=== PATIENT | female | born 1990 | race African-American/Black ===

== ENCOUNTER 2016-08-13 11:04 | Emergency (ER) | payer OTHER ==
[~2016-08-13] VITALS: Ht 152.4 cm; Wt 50.4 kg
[~2016-08-13 11:04] MED LIST: ALBU8I INH; ALBUAER3 INH; AZIT250T3 PO; PRED20 PO
[2016-08-13 11:06] VITALS: BP 133/81; PULSE 81; RESP 16; TEMP 97.8; O2SAT 92
[2016-08-13] MEDS ORDERED: ALBUAER3 INH (12:31)
[2016-08-13] MEDS ORDERED: PRED20 PO (12:31)
--- NOTE | 2016-08-13 12:32 | PD ---
HPI Chief Complaint: Respiratory Symptoms Time Seen by Provider: 12:24 Travel History International Travel<30 days: No Contact w/Intl Traveler<30days: No Traveled to known affect area: No History of Present Illness HPI This is a 25-year-old female who has a history of asthma who presents to the emergency department with 2 days of shortness of breath and wheezing. She denies any rhinorrhea, fevers or chills. Her symptoms of been constant, moderate severity and worse with exertion. She ran out of her inhaler. PFSH Past Medical History Asthma: Yes Developmental Delay: No Diminished Hearing: No Respiratory: Yes (Asthma) Immunizations Current: Yes ?: Not Social History Alcohol Use: No Tobacco Use: No Substance Use: No Allergies-Medications (Allergen,Severity, Reaction): Coded Allergies: No Known Allergies (Verified , 08/13/16) Reported Meds & Prescriptions Reported Meds & Active Scripts Active Prednisone 20 Mg Tab 40 Mg PO DAILY 5 Days Proair Hfa 8.5 GM Inh (Albuterol Sulfate) 90 Mcg/Act Aer 2 Puff INH Q4-6H PRN 108 mcg/actuation Azithromycin 250 Mg Tab 250 Mg PO DIRECTED Take 2 tabs (500 mg) on day 1 then 1 tab daily x 4 days. Review of Systems Except as stated in HPI: all other systems reviewed are Neg Physical Exam Narrative GENERAL:Well appearing, no acute distress SKIN: Focused skin assessment warm and dry. HEAD: Atraumatic. Normocephalic. EYES: Pupils equal and round. No injection or drainage. ENT: Moist mucous membranes NECK: Trachea midline. CARDIOVASCULAR: Regular rate and rhythm. No murmur appreciated. RESPIRATORY: Diffuse bilateral expiratory wheezing. GASTROINTESTINAL: Abdomen soft, non-tender, nondistended. MUSCULOSKELETAL: No obvious deformities. NEUROLOGICAL: Awake and alert. No obvious cranial nerve deficits. Moving all extremities. PSYCHIATRIC: Appropriate mood and affect; insight and judgment normal. Data Data Last Documented VS Vital Signs Date Time Temp Pulse Resp B/P Pulse Ox O2 Delivery O2 Flow Rate FiO2 08/13/16 11:06 97.8 81 16 133/81 92 MDM Medical Decision Making Medical Screen Exam Complete: Yes Emergency Medical Condition: Yes Differential Diagnosis Acute asthma exacerbation, bronchitis, pneumonia Narrative Course This is a 25-year-old female who presents the emergency department with wheezing in the setting of a history of asthma. She is well-appearing on examination think she is appropriate for outpatient therapy. She'll be prescribed prednisone and albuterol. Diagnosis Primary Impression: Asthma exacerbation Patient Instructions: General Instructions Additional Instructions: If you develop severe shortness of breath, chest pain, or difficulty breathing return to the emergency department. Use albuterol every 4 hours for the next 2 days. Then use as needed for wheezing. Complete your course of steroids. Follow up with your primary care physician in 2-3 days if your symptoms have not improved. Med/Other Pt SpecificInfo: Prescription(s) given Scripts Prednisone 20 Mg Tab40 Mg PO DAILY 4 Days Prov:Lynn Michelle MD 08/13/16 Albuterol 8.5 GM Inh (Proair Hfa 8.5 GM Inh)90 Mcg/Act Aer2 Puff INH Q4-6H PRN ( SHORTNESS OF BREATH) #1 INHALER 108 mcg/actuation Prov:Lynn Michelle MD 08/13/16 Disposition: 01 DISCHARGE HOME Condition: Stable Lynn Michelle MD Aug 13, 2016 12:31
[2016-08-13 13:05] VITALS: BP 118/75
== END 2016-08-13 13:13 | disposition home or self-care (01) ==
LOC: NEPD 11:04
DX: J45.901 Unspecified asthma with (acute) exacerbation (principal)
CPT/HCPCS: 99284

== ENCOUNTER 2017-07-02 06:48 | Emergency (ER) | payer OTHER ==
[~2017-07-02] VITALS: Ht 152.4 cm; Wt 50.0 kg
[~2017-07-02 06:48] MED LIST changes: -ALBU8I INH
[2017-07-02 07:05] VITALS: BP 117/75; PULSE 105; RESP 16; TEMP 98.6; O2SAT 96
[2017-07-02] MEDS ORDERED: RESP: ALBUTEROL 2.5 MG/IPRATROPIUM 0.5 MG NEB (SCH) INH ONE (07:30)
[2017-07-02] MEDS ORDERED: predniSONE 20 MG TAB PO ONE (07:30)
[2017-07-02 07:38] VITALS: BP 106/72; PULSE 96; RESP 16; O2SAT 96
--- NOTE | 2017-07-02 07:50 | PD ---
HPI Chief Complaint: Respiratory Symptoms Time Seen by Provider: 07:18 Travel History International Travel<30 days: No Contact w/Intl Traveler<30days: No Traveled to known affect area: No History of Present Illness HPI 26-year-old female, with history of asthma, presents to the emergency department with complaint of asthma exacerbation for the past couple days. She has been out of her inhaler for about 2 weeks. She is reporting shortness of breath, chest tightness, wheezing. Denies chest pain. Denies recent illness including nasal congestion, cough, sore throat, ear pain. Denies tobacco use. No known aggravating factors. Relieved with albuterol inhaler, but does not have one. Has tried using Vicks vapor rub for symptom management with no relief. Symptoms are mild to moderate in severity. No primary care provider. No known allergies. History of asthma. Has no other medical complaints. No other modifying factors or associated signs and symptoms. PFSH Past Medical History Asthma: Yes Developmental Delay: No Diminished Hearing: No Respiratory: Yes (Asthma) Immunizations Current: Yes ?: Not LMP: 06/17/17 Past Surgical History Surgical History: No Previous Surgery Social History Alcohol Use: No Tobacco Use: No Substance Use: No Allergies-Medications (Allergen,Severity, Reaction): Coded Allergies: No Known Allergies (Verified Adverse Reaction, Unknown, 07/02/17) Reported Meds & Prescriptions Reported Meds & Active Scripts Active Deltasone (Prednisone) 20 Mg Tab 40 Mg PO DAILY 4 Days start 07/03/2017 Ventolin Hfa 18 GM Inh (Albuterol Sulfate) 90 Mcg/Act Aer 2 Puff INH Q4-6H PRN Proair Hfa 8.5 GM Inh (Albuterol Sulfate) 90 Mcg/Act Aer 2 Puff INH Q4-6H PRN 108 mcg/actuation Review of Systems Except as stated in HPI: all other systems reviewed are Neg Physical Exam Narrative GENERAL: Well-nourished, well-developed black female patient, in no acute distress; afebrile, nontoxic-appearing SKIN: Warm and dry. HEAD: Atraumatic. Normocephalic. EYES: Pupils equal and round. No scleral icterus. No injection or drainage. ENT: Mucosa pink and moist. Airway patent. EARS: Bilateral pinnae and external canals appear within normal limits. NECK: Trachea midline. No lymphadenopathy. CARDIOVASCULAR: Mildly tachycardic rate in the low 100s and regular rhythm. No murmur appreciated. RESPIRATORY: No accessory muscle use. Lungs with Wheezing throughout to auscultation. Breath sounds equal bilaterally. No retractions or tachypnea. No Audible wheezing noted. GASTROINTESTINAL: Abdomen soft, non-tender, nondistended. Hepatic and splenic margins not palpable. Bowel sounds are active 4 quadrants. MUSCULOSKELETAL: No obvious deformities. No clubbing. No cyanosis. No edema. NEUROLOGICAL: Awake and alert. Oriented 3. No obvious cranial nerve deficits. Motor grossly within normal limits. Normal speech. Moves all extremities. 5/5 strength to all extremities. PSYCHIATRIC: Appropriate mood and affect; insight and judgment normal. Data Data Last Documented VS Vital Signs Date Time Temp Pulse Resp B/P (MAP) Pulse Ox O2 Delivery O2 Flow Rate FiO2 07/02/17 08:37 95 17 96 07/02/17 07:38 Room Air 07/02/17 07:05 98.6 Orders Orders Prednisone (Deltasone) (07/02/17 07:30) Albuterol-Ipratropium Neb (Duoneb Neb) (07/02/17 07:30) [facility] Medical Decision Making Medical Screen Exam Complete: Yes Emergency Medical Condition: Yes Medical Record Reviewed: Yes Differential Diagnosis Asthma exacerbation, bronchitis, medication refill Narrative Course 26-year-old female with history of asthma presents with asthma exacerbation. Patient is in no acute distress. Oxygen saturation is 96% on room air. No tachypnea or retractions. Lungs with wheezing throughout on auscultation. No audible wheezing. Patient ran out of her albuterol inhaler 2 weeks ago and needs a refill. Deltasone, DuoNeb 1 ordered. Reexamination patient reports improvement in symptoms. Denies chest tightness or shortness of breath. Lungs are clear and equal throughout. Ventolin inhaler , prednisone prescribed for home. Instructed patient to follow up with primary care provider. Patient verbalizes understanding and agreement with treatment plan. Patient is medically cleared and stable for discharge. Discussed reasons to return to the emergency department. Patient agrees with treatment plan. The patients vital signs are stable and the patient is stable for outpatient follow-up and treatment. Patient discharged home, stable and in no acute distress. Diagnosis Primary Impression: Asthma exacerbation Qualified Codes: J45.901 - Unspecified asthma with (acute) exacerbation Referrals: [facility] Primary Care Physician Patient Instructions: Asthma (ED), General Instructions Additional Instructions: Use albuterol inhaler as needed for shortness of breath and/or wheezing Take oral steroids as prescribed and complete full course Avoid asthma triggers such as smoking cigarettes, second hand smoke, dust, known allergens Follow-up with primary care provider Return to emergency department immediately with worsening of symptoms Med/Other Pt SpecificInfo: Prescription(s) given Scripts Prednisone (Deltasone) 20 Mg Tab 40 MG PO DAILY for 4 Days, #8 TAB 0 Refills start 07/03/2017 Prov: Lida Lara 07/02/17 Albuterol 18 GM Inh (Ventolin Hfa 18 GM Inh) 90 Mcg/Act Aer 2 PUFF INH Q4-6H Y for SOB/WHEEZING, #1 INHALER 0 Refills Prov: Lida Lara 07/02/17 Disposition: 01 DISCHARGE HOME Condition: Stable Lida Lara July 02, 2017 07:50
[2017-07-02] MEDS ORDERED: PRED-503 PO (08:01)
[2017-07-02] MEDS ORDERED: VENTAER INH (08:01)
== END 2017-07-02 08:46 | disposition home or self-care (01) ==
LOC: NEPD 06:48
DX: J45.901 Unspecified asthma with (acute) exacerbation (principal)
CPT/HCPCS: 94664; 99281; J7512